=== PATIENT | female | born 1930 | race Caucasian/White ===

== ENCOUNTER 2016-08-21 13:51 | Emergency (ER) | payer MEDICARE, BC ==
[2016-08-21] MEDS ORDERED: LORazepam 2 MG/ML MDV IVPUSH ONE (13:57)
[2016-08-21] MEDS ORDERED: Ondansetron 4 MG/2 ML SDV IVPUSH ONE (13:57)
[2016-08-21] MEDS ORDERED: Sodium Chloride 0.9% 1,000 ML IV ONE (13:57)
[2016-08-21] MEDS ORDERED: Meclizine 25 MG Tab PO ONE (14:50)
[2016-08-21 16:31] VITALS: BP 139/50
--- NOTE | 2016-08-22 17:37 | ER ---
DATE SEEN: 08/21/2016 HISTORY OF PRESENT ILLNESS: The patient is an 85-year-old female, who presents with dizziness. She has difficulty seeing because of her glaucoma, has a glaucoma procedure scheduled in a few weeks. She says she has been getting progressively more anxious about the procedure, has not been eating or drinking well today, yesterday was able to drink okay. Denies any headache. She was recently prescribed medication to help her sleep and help with her anxiety which she just started taking them, but she is not sure if they have helped much. Dr. Schwartz prescribed those medications for her. She said dizziness is more pronounced when she goes from a sitting to standing position; when she is lying flat, she does not have any. She denies any shortness of breath or chest pain. MEDICATIONS: 1. Timolol. 2. Mirtazapine. 3. Citalopram. 4. Gemfibrozil. 5. Aspirin. 6. Norvasc. 7. Levothyroxine. 8. Atenolol. 9. Lisinopril. ALLERGIES: Penicillin, prednisone, Bactrim. PAST MEDICAL HISTORY: Glaucoma, cerebral vascular accident, hypertension. REVIEW OF SYSTEMS: NEUROLOGIC: Denies any focal weaknesses. PHYSICAL EXAMINATION: VITAL SIGNS: Temperature is 36.7, pulse is 58, blood pressure 151/72, respiratory rate 18, 98% on room air. GENERAL: She is no apparent acute distress. HEENT: Pupils equal, round, responsive to light. Extraocular muscles intact. NECK: Supple. LUNGS: Clear to auscultation. HEART: Regular rate and rhythm. ABDOMEN: Soft. NEUROLOGICAL: No focal deficits. No ataxia or dysmetria. When performing a Hallpike maneuver, it does not reproduce her symptoms. Orthostatic vitals were taken and she is orthostatic. LABORATORY DATA: CBC within normal limits. Metabolic panel is within normal limits. Creatinine is 0.7. Urinalysis within normal limits. EMERGENCY DEPARTMENT COURSE: She received a liter of normal saline, Zofran 4 mg p.o. She reports symptomatic improvement, able to walk more steady. Dizziness improved. She also received Ativan 1 mg IV. ASSESSMENT: Dizziness, likely due to orthostatic hypotension and anxiety. PLAN: Continue current medications. Increase fluid intake. Follow up with primary physician this week. /[id number] FATUMA
== END 2016-08-21 18:30 | disposition home or self-care (01) ==
LOC: FB.ED 13:51
DX: I10 Essential (primary) hypertension (principal); Z79.82 Long term (current) use of aspirin; Z88.0 Allergy status to penicillin; Z88.1 Allergy status to other antibiotic agents; Z88.5 Allergy status to narcotic agent; Z86.73 Personal history of transient ischemic attack (TIA), and cerebral infarction without residual deficits
CPT/HCPCS: 36415; 80048; 81001; 85025; 96361; 96374; 96375; 99284; A9270; J2060; J2405; J7040; 99283

== ENCOUNTER 2016-08-23 11:44 | Emergency (ER) | payer MEDICARE, BC ==
[2016-08-23 16:12] VITALS: BP 156/72
--- NOTE | 2016-08-24 11:20 | CR ---
INDICATION: Dizziness, severe left fast component nystagmus. CHEST: PA and lateral views of the chest, 08/23/2016, were compared with 2007 and revealed the heart to be enlarged, the aorta tortuous and calcified in the arch and descending portion. Dextroconvex scoliosis of the upper middle thoracic spine is noted. Somewhat flattened diaphragm leaves, minimally prominent AP diameter, and mild hyperaeration, all suggest COPD along with interdigitation of diaphragm leaves. A definite active infiltrate or effusion was not identified. IMPRESSION: 1. No acute process. 2. Probable progressive ASHD with cardiomegaly. 3. COPD. 4. Mild scoliosis. MTDD
--- NOTE | 2016-08-26 11:59 | ER ---
DATE SEEN: 08/23/2016 TIME SEEN: The patient was seen at 1205 hours. CHIEF COMPLAINT: This 85-year-old woman comes in with history of dizziness, nystagmus, anxiety, anorexia, depression, hypothyroidism, status post CVA glaucoma with need for left eye surgery on September 14 because the pressure is so high, restlessness, dyslipidemia, and no history of falls. HISTORY OF PRESENT ILLNESS: The patient was seen 2 days ago in the emergency room by Dr. Felix. Noted to have dizziness, anorexia, anxiety, and Hallpike maneuver was negative. Laboratory studies were negative. She was given Ativan IV for her anxiety. Daughter and the patient note that she had become just weird, "dysphoric" after she left the ER. She was flushed with IV fluids for orthostatic hypotension and now returns again because she has persistent dizziness not resolved, meclizine does not help, and anxiety is increased. Decreased food intake, but she is drinking fluids. She knows that the anorexia and nausea is probably related to her dizziness. She vomited the evening of 08/21/2016. She is very anxious about having her upcoming cataract surgery on September 14. Also anxious about her living situation. Lives alone in an apartment at [place]. Her daughter lives in [place] and another daughter lives approximately 200 miles from here. Apparently, she has less than an optimal relationship with her daughters, I am not sure what that is all about. See pertinent dictation below. I later learned that one of her daughters - she is not on speaking terms. They have more or less a standoff relationship because apparently when her grandson she never spoke to her daughter, was never supportive, and the daughter notes she has never been much of a mother to me in that regard. Also, when the patient's went to the intermediate, she never visited. The daughter presents a history that she was quite selfish and she was quite cordial to other people, but very much antagonistic to both daughters and not very much involved with them nor does she listen to the daughters' advice. According to one daughter, they were very concerned about her stability, her walking, and want her very much to go to [facility]. The patient has been very resistant to moving from her current place in [place] to [facility] in [place]. It is an assisted living environment where she would be more safe and the daughters feel she would have better care and better interaction with people she knows. No recent history of falls. SIGNIFICANT PAST MEDICAL HISTORY: Depression, CVA, hypothyroidism treated, hypertension, right eye glaucoma, left eye is seriously elevated. She has fear of losing more of her eyesight in the right good eye. Her left eye has very poor vision. Dyslipidemia, restless legs syndrome, and significant anxiety, and documented 07/03/15 nystagmus on the chart and also had nystagmus on the last visit, 08/21/2016, when seen by Dr. Felix. Medications have not been changed recently. She denies dehydration. She feels she is eating and drinking, but her p.o. intake and liquid intake is obviously decreased because she has had this persistent dizziness and that is getting worse. REVIEW OF SYSTEMS: CARDIORESPIRATORY: The patient denies chest pain, shortness of breath, cough, or irregular heartbeat. HEENT: Denies headaches, difficulty swallowing, or decreased hearing. She denies neck pain or falls. GASTROINTESTINAL: Denies abdominal discomfort, diarrhea, constipation, change in bowels, blood in her stool, black or tarry stool, reflux. : Denies any incontinence. MUSCULOSKELETAL: Denies joint pain, aching, or weakness, but she uses a cane periodically. NEUROLOGIC: Previous CVA. Denies seizures or falling to one side or weakness of one extremity. PHYSICAL EXAMINATION: VITAL SIGNS: Blood pressure 160/69, respirations 15, heart rate 71 and regular, and oxygen saturation 98% on room air. Orthostatic blood pressure supine 152/83 and heart rate 89, sitting 165/83 and heart rate 53, standing blood pressure 161/77 and heart rate 57. No evidence for orthostatic changes. In fact, it is surprising that with sitting and standing her heart rate would come down as opposed to increase. Perhaps the Tenormin has caused her heart rate to go down as opposed to having a sympathetic response to elevate. She is taking Tenormin 50 mg b.i.d. HEENT: The patient has very notable left fast component nystagmus, rapid beats. I did not look into the eyes - I did not check the retinas. EOMs, she has conjugate gaze in spite of the blindness in the left eye. She can sense light, but has very poor vision in the left eye. Hearing is good. TMs negative. NECK: Supple. No bruits in the neck. Swelling is appropriate. Uvula midline. Tongue is midline. LUNGS: Clear to auscultation without rales, rhonchi, or wheezes. HEART: S1, S2. No murmur. No irregular rate or rhythm. No S3, no S4. ABDOMEN: Soft. No guarding. No abdominal discomfort. NEUROLOGIC: Deep tendon reflexes, upper extremities hypoactive, absent knee jerks and ankle jerks. Muscle strength in dorsiflexion, plantar flexion of the foot is excellent. Muscle strength left and right upper extremity symmetrical and good. Hand staffing rn is good. She pushes and pulls well. Pronator drift negative. Cranial nerves 2 through 12 intact except for the vision. No asymmetry of facial folds. Gait is stable but somewhat unsure because her vision is poor. Romberg is negative. LABORATORY DATA: CPK is normal - no suggestion of myocardial infarction or rhabdomyolysis from sitting around or lying around too long. TSH is not abnormal. CMP and CBC are normal. EKG; sinus rhythm in the 50s. Chest x-ray, no infiltrate. She has trace cardiomegaly, the transcardiac versus transthoracic ratio is slightly over 50%, so it suggests very slight cardiomegaly. Her daughter notes that she had one chamber abnormality on an echo that had previously been discussed and "it was slightly enlarged and less functional than other chambers." This suggests perhaps there may be some left ventricular bulbous quality, but I think that is an overcall on the chest x-ray. PROCEDURE: I did perform a Hallpike maneuver. It seemed to be more accentuated on the left with the left lateral head slightly turned to the left compared to the right. With the fast component to the left, the Montrell maneuver was performed and did not make any difference in her dizziness. However, with the Montrell maneuver, intermittently the nystagmus would completely relent. It relented for about a minute, then returned to same. Also, when she would sit up, the nystagmus relented. When I tried to test the right side of her head, the left-sided fast nystagmus persisted. When I performed the lateral Montrell maneuver - had her lie down and roll her body with the head almost on the floor (at least 1.5 feet below the gurney surface) and had her sit up rapidly, the nystagmus relented for about a minute, and then came back at the same level it was before. The patient had Montrell maneuver performed in physical therapy by Glynn, the chief physical therapist, and he felt this was not a semicircular canal-mediated nystagmus. He plans to see her later this week on , in 2 days, and repeat more testing. He did not feel there was a horizontal canal, semi- circular canal abnormality. 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 Perhaps if Nicholas cannot get resolution of the vertigo with the sophisticated PT maneuvers she may have to go to vertigo clinic where computerized goggle measurement can confirm the presence or absence of semicircular canal abnormalities. ASSESSMENT: 1. Dizziness and nystagmus are associated. Does not appear to be a benign paroxysmal positional vertigo. 2. Etiology for dizziness is indeterminate. Surprisingly, this does relent when she sits up for a minute or when she would rotate to the side, left or right with her head over the gurney, and closer to the floor position. 3. The latter two findings suggest there is some indirect relationship to semicircular canals. Perhaps, further testing may elucidate this. However, I am not optimistic. The surprising decrease of her vertigo with sitting up, may relate this is a blood pressure issue. Perhaps the patient needs to have a higher blood pressure and the atenolol dose could be tried at a lower dose. This is a guess. The only way to know is to perform a trial of this and require more medical vigilance and closer followup. I did not change her medicines in that regard. OTHER DIAGNOSES: 1. Status post cerebrovascular accident. It is possibly the cerebrovascular accident may have affected her balance centers or the nystagmus and this is permanently present since the cerebrovascular accident. 2. Hypothyroidism, treated, stable. TSH is normal. 3. Glaucoma increasing pain in left eye, perhaps the glaucoma may have something to do with accentuated nystagmus, but she has had nystagmus since July 03, 2015 documented on the chart, so I think this is more a long-term neurological injury. Perhaps the cerebrovascular accident that she experienced years ago is the cause of this. 4. Dyslipidemia. 5. Restless legs syndrome. 6. The patient did not respond to meclizine. 7. She became dysphoric with 1 mg of Ativan. PLAN: 1. A trial of very low doses of clonazepam 0.25 mg or 0.5 mg b.i.d. She will need to have the staff to be vigilant about her gait. Should this cause her dizziness, she should discontinue this trial. 2. Her anxiety seems to be an overriding issue in her life. She has apparently burned the bridges between her daughters and they are less than motivated to work with her since she has been contrarian to them most of their life. The patient is to follow up with doctor in a week. 3. Also, the most important issue that was addressed today was the subsequent living place. She has realized that she needs to change places where she lives and needs to go to [facility] for security. Otherwise, I am afraid she would need to go directly to a intermediate for further care. She came to this conclusion, but that was not something that I pushed her to do, but have reinforced that. Her daughters will be working to establish this and to help her make this transition. /[id number] TETO/MENG ORTEGA
== END 2016-08-23 16:00 | disposition home or self-care (01) ==
LOC: FB.ED 11:44
DX: R42 Dizziness and giddiness (principal); E03.9 Hypothyroidism, unspecified
CPT/HCPCS: 36415; 71020; 80053; 82550; 84443; 84484; 85025; 93005; 99283; 99285

== ENCOUNTER 2016-09-11 12:50 | Observation (INO) | payer MEDICARE, BC ==
[2016-09-11] MEDS ORDERED: Ondansetron 4 MG Tab.DIS PO ONE (13:02)
[2016-09-11] MEDS ORDERED: Ketorolac 30 MG/ML SDV IM ONE (13:10)
--- NOTE | 2016-09-11 13:15 | EDM.PDOC ---
ED HPI GENERAL MEDICAL PROBLEM - General Chief Complaint: General Stated Complaint: LIGHT HEADED, WEAK AND ABD PAIN Time Seen by Provider: 09/11/16 13:00 Source of Information: Reports: Patient, Old Records History Limitations: Reports: No Limitations - History of Present Illness INITIAL COMMENTS - FREE TEXT/NARRATIVE: 85 yo female here with a 2 week hx of nausea that is worse today. Had been seen for these sx's here about 2 weeks ago and nothing was found. Says she vomited a couple times today. Is mostly blind. Arrives via EMS. Reports a mild MARHS. No diarrhea. Some mild diffuse abdominal pain. Denies vertigo. Has anorexia. Had some chills today. No dysuria or cough or SOB. No chest pain. Onset: Other (approx 2 weeks ago.) Duration: Week(s):, Getting Worse Location: Reports: Head, Abdomen Quality: Reports: Dull Severity: Moderate Improves with: Reports: None Worsens with: Reports: Eating Context: Reports: Other (unknown cause, recent negative work up. ) Associated Symptoms: Reports: Fever/Chills (no fever, only chills), Headaches ( mild today), Loss of Appetite, Malaise, Nausea/Vomiting, Syncope (not today, before last ER visit). 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 (see below) (none today) Middle Abdomen Pain Score (Numeric/FACES): 7 - Related Data Allergies Allergy/AdvReac Type Severity Reaction Status Date / Time Penicillins Allergy Hives Verified 09/11/16 13:00 prednisone Allergy Cannot Verified 09/11/16 13:00 Remember sulfamethoxazole Allergy Cannot Verified 09/11/16 13:00 [From Bactrim] Remember Tetanus Vaccines and Toxoid Allergy Swelling Verified 09/11/16 13:00 trimethoprim [From Bactrim] Allergy Cannot Verified 09/11/16 13:00 Remember steroids Allergy Swollen Uncoded 09/11/16 13:00 Eyes Home Meds: Home Meds Atenolol [Tenormin] 50 mg PO BID 07/03/15 [History] Bimatoprost [LUMIGAN 0.01% Ophth Soln] 1 drop EYEBOTH BEDTIME 07/03/15 [History] Levothyroxine 75 mg PO DAILY 07/03/15 [History] Lisinopril 40 mg PO DAILY 07/03/15 [History] Timolol Maleate [Timoptic 0.5% Ophth Soln] 1 drop EYEBOTH DAILY 07/03/15 [ History] amLODIPine [Norvasc] 2.5 mg PO DAILY 07/03/15 [History] Aspirin [Adult Low Dose Aspirin EC] 81 mg PO DAILY 08/21/16 [History] Gemfibrozil [Lopid] 600 mg PO DAILY 08/21/16 [History] ClonazePAM [KlonoPIN] 0.25 mg PO BID #20 tablet 08/23/16 [Rx] Lutein/Minerals/Vit A,C & E [Ocuvite] 1 tab PO DAILY 08/23/16 [History] Citalopram [Citalopram HBr] 10 mg PO DAILY 09/11/16 [History] Ondansetron [Ondansetron Odt] 4 mg PO Q8HR 09/11/16 [History] Past Medical History HEENT History: Reports: Glaucoma Cardiovascular History: Reports: Hypertension Other Cardiovascular History: "MY HEART SKIPS A BEAT" 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 History: Endocrine/Metabolic History: Reports: Other (See Below) Other Endocrine/Metabolic History: THYROID - Past Surgical History HEENT Surgical History: Reports: Tonsillectomy Female Surgical History: Reports: Hysterectomy Social & Family History - Tobacco Use Smoking Status *Q: Never Smoker Second Hand Smoke Exposure: No - Caffeine Use Caffeine Use: Reports: Soda - Recreational Drug Use Recreational Drug Use: No ED ROS GENERAL - Review of Systems Review Of Systems: See Below Constitutional: Reports: Malaise HEENT: Reports: No Symptoms Respiratory: Reports: No Symptoms Cardiovascular: Reports: No Symptoms GI/Abdominal: Reports: Abdominal Pain (mild diffuse), Anorexia, Decreased Appetite, Nausea, Vomiting. Denies: Constipation, Diarrhea, Distension, Hematemesis, Hematochezia, Melena : Reports: No Symptoms Musculoskeletal: Reports: No Symptoms Skin: Reports: No Symptoms Neurological: Reports: Dizziness (mild) Psychiatric: Reports: No Symptoms ED EXAM, GENERAL - Physical Exam Exam: See Below Exam Limited By: No Limitations General Appearance: Alert, WD/WN, No Apparent Distress Eye Exam: Bilateral Eye: EOMI, Normal Inspection, PERRL Ears: Normal External Exam, Normal Canal, Hearing Grossly Normal, Normal TMs Ear Exam: Bilateral Ear: Auricle Normal, Canal Normal, TM normal Nose: Normal Inspection, Normal Mucosa, No Blood Throat/Mouth: Normal Inspection, Normal Lips, Normal Teeth, Normal Oropharynx, Normal Voice, No Airway Compromise Head: Atraumatic, Normocephalic Neck: Normal Inspection, Supple, Non-Tender Respiratory/Chest: No Respiratory Distress, Lungs Clear, Normal Breath Sounds, No Accessory Muscle Use Cardiovascular: Regular Rate, Rhythm, No Edema GI/Abdominal: Normal Bowel Sounds, Soft, Non-Tender, No Distention Back Exam: Normal Inspection Extremities: Normal Inspection, Normal Range of Motion, Non-Tender, No Pedal Edema Neurological: Alert, Oriented, CN II-XII Intact, Normal Cognition, No Motor/ Sensory Deficits Psychiatric: Normal Affect, Normal Mood Skin Exam: Warm, Dry, Intact, Normal Color, No Rash Lymphatic: No Adenopathy EKG INTERPRETATION EKG Date: 09/11/16 Time: 13:10 Rhythm: NSR Rate (Beats/Min): 56 [place]: Normal P-Wave: Present QRS: Normal ST-T: Normal QT: Normal Comparison: No Change Course - Vital Signs Text/Narrative:: Alprazolam 0.25 mg po, Zofran ODT 4 mg SL, Toradol 15 mg IM, amlodipine 2.5 mg po, atenolol 50 mg po, lisinopril 40 mg po, NS 1000 ml IV, cephalexin 500 mg po , Maalox 30 ml po, Dulcolax supp 1 [place](declined), acetaminophen 1000 mg po Last Recorded V/S: Last Vital Signs Temp 37.2 C 09/11/16 13:02 Pulse 56 L 09/11/16 13:02 Resp 16 09/11/16 13:02 BP 160/59 H 09/11/16 14:25 Pulse Ox 100 09/11/16 13:02 - Orders/Labs/Meds Orders: Active Orders 24 hr Category Date Time Status CULTURE URINE [RM] Stat Lab 09/11/16 13:55 Received Sodium Chloride 0.9% [Normal Saline] 1,000 ml Med 09/11/16 14:15 Active IV ASDIRECTED Sodium Chloride 0.9% [Saline Flush] Med 09/11/16 13:24 Active 10 ml FLUSH ASDIRECTED PRN Saline Lock Insert [OM.PC] Routine Oth 09/11/16 13:24 Ordered EKG 12 Lead [EK] Routine Ther 09/11/16 13:07 Ordered Medication Orders Sodium Chloride (Normal Saline) 1,000 mls @ 1,000 mls/hr IV ASDIRECTED MICHELLE Last Admin: 09/11/16 14:30 Dose: 1,000 mls/hr Sodium Chloride (Saline Flush) 10 ml FLUSH ASDIRECTED PRN PRN Reason: Keep Vein Open Last Admin: 09/11/16 13:44 Dose: 10 ml Labs: Laboratory Tests 09/11/16 09/11/16 09/11/16 Range/Units 13:25 13:25 13:25 WBC 5.8 (4.5-12.0) X10-3/uL RBC 4.40 (3.23-5.20) x10(6)uL Hgb 14.1 (11.5-15.5) g/dL Hct 41.7 (30.0-51.3) % MCV 94.8 (80-96) fL MCH 32.1 (27.7-33.6) pg MCHC 33.9 (32.2-35.4) g/dL RDW 11.8 (11.5-15.5) % Plt Count 226 (125-369) X10(3)uL Sodium 127 L (135-145) mmol/L Potassium 5.0 (3.5-5.3) mmol/L Chloride 92 L D (100-110) mmol/L Carbon Dioxide 25 (23-29) mmol/L BUN 10 (8-23) mg/dL Creatinine 0.8 (0.6-1.3) mg/dL Est Cr Clr Drug Dosing TNP Estimated GFR (MDRD) > 60 (>60) BUN/Creatinine Ratio 12.5 (9-20) Glucose 122 H (80-116) mg/dL Calcium 9.5 (8.6-10.2) mg/dL Troponin I < 0.01 L (0.02-0.06) NG/ML Urine Color (YELLOW) Urine Appearance (CLEAR) Urine pH (5.0-6.5) Ur Specific [place] (1.010-1.025) Urine Protein (NEGATIVE) mg/dL Urine Glucose (UA) (NEGATIVE) mg/dL Urine Ketones (NEGATIVE) mg/dL Urine Occult Blood (NEGATIVE) Urine Nitrite (NEGATIVE) Urine Bilirubin (NEGATIVE) Urine Urobilinogen (NEGATIVE) mg/dL Ur Leukocyte Esterase (NEGATIVE) Urine WBC (0) Ur Squamous Epith Cells (NS,R,O) Urine Bacteria (NS) 09/11/16 Range/Units 13:55 WBC (4.5-12.0) X10-3/uL RBC (3.23-5.20) x10(6)uL Hgb (11.5-15.5) g/dL Hct (30.0-51.3) % MCV (80-96) fL MCH (27.7-33.6) pg MCHC (32.2-35.4) g/dL RDW (11.5-15.5) % Plt Count (125-369) X10(3)uL Sodium (135-145) mmol/L Potassium (3.5-5.3) mmol/L Chloride (100-110) mmol/L Carbon Dioxide (23-29) mmol/L BUN (8-23) mg/dL Creatinine (0.6-1.3) mg/dL Est Cr Clr Drug Dosing Estimated GFR (MDRD) (>60) BUN/Creatinine Ratio (9-20) Glucose (80-116) mg/dL Calcium (8.6-10.2) mg/dL Troponin I (0.02-0.06) NG/ML Urine Color Yellow (YELLOW) Urine Appearance Slightly cloudy (CLEAR) Urine pH 7.0 H (5.0-6.5) Ur Specific [place] 1.010 (1.010-1.025) Urine Protein Negative (NEGATIVE) mg/dL Urine Glucose (UA) Normal (NEGATIVE) mg/dL Urine Ketones Negative (NEGATIVE) mg/dL Urine Occult Blood Negative (NEGATIVE) Urine Nitrite Negative (NEGATIVE) Urine Bilirubin Negative (NEGATIVE) Urine Urobilinogen Normal (NEGATIVE) mg/dL Ur Leukocyte Esterase Moderate H (NEGATIVE) Urine WBC 20-30 H (0) Ur Squamous Epith Cells Few H (NS,R,O) Urine Bacteria Moderate H (NS) Meds: Medications Generic Name Dose Route Start Last Admin Trade Name Freq PRN Reason Stop Dose Admin Sodium Chloride 1,000 mls @ 1,000 mls/hr 09/11/16 14:15 09/11/16 14:30 Normal Saline IV 1,000 mls/hr ASDIRECTED MICHELLE Administration Sodium Chloride 10 ml 09/11/16 13:24 09/11/16 13:44 Saline Flush FLUSH 10 ml ASDIRECTED PRN Administration Keep Vein Open Discontinued Medications Generic Name Dose Route Start Last Admin Trade Name Freq PRN Reason Stop Dose Admin Acetaminophen 1,000 mg 09/11/16 16:33 09/11/16 16:39 Tylenol Extra Strength PO 09/11/16 16:34 1,000 mg ONETIME ONE Administration Al Hydroxide/Mg Hydroxide 30 ml 09/11/16 15:53 09/11/16 16:39 Mag-Al Susp PO 09/11/16 15:54 30 ml NOW STA Administration Alprazolam 0.25 mg 09/11/16 13:37 09/11/16 13:43 Xanax PO 09/11/16 13:38 0.25 mg NOW ONE Administration Amlodipine Besylate 2.5 mg 09/11/16 13:59 09/11/16 14:24 Norvasc PO 09/11/16 14:00 2.5 mg ONETIME ONE Administration Atenolol 50 mg 09/11/16 13:59 09/11/16 14:25 Tenormin PO 09/11/16 14:00 50 mg ONETIME ONE Administration Bisacodyl 10 mg 09/11/16 15:53 09/11/16 16:39 Dulcolax RECTAL 09/11/16 15:54 10 mg ONETIME ONE Administration Cephalexin 500 mg 09/11/16 14:27 09/11/16 14:47 Keflex PO 09/11/16 14:28 500 mg ONETIME ONE Administration Ketorolac Tromethamine 15 mg 09/11/16 13:10 09/11/16 13:14 Toradol IM 09/11/16 13:11 15 mg ONETIME ONE Administration Lisinopril 40 mg 09/11/16 13:59 09/11/16 14:25 Prinivil PO 09/11/16 14:00 40 mg NOW STA Administration Ondansetron HCl 4 mg 09/11/16 13:02 09/11/16 13:11 Zofran Odt PO 09/11/16 13:03 4 mg ONETIME ONE Administration Departure - Departure Time of Disposition: 17:15 Disposition: Refer to Observation Condition: Fair Clinical Impression: Hyponatremia, Dizziness, Nausea - Discharge Information Forms: ED Department Discharge - My Orders Last 24 Hours: My Active Orders 09/11/16 13:07 EKG 12 Lead [EK] Routine 09/11/16 13:24 Sodium Chloride 0.9% [Saline Flush] 10 ml FLUSH ASDIRECTED PRN Saline Lock Insert [OM.PC] Routine 09/11/16 13:55 CULTURE URINE [RM] Stat 09/11/16 14:15 Sodium Chloride 0.9% [Normal Saline] 1,000 ml IV ASDIRECTED - Assessment/Plan Last 24 Hours: My Active Orders 09/11/16 13:07 EKG 12 Lead [EK] Routine 09/11/16 13:24 Sodium Chloride 0.9% [Saline Flush] 10 ml FLUSH ASDIRECTED PRN Saline Lock Insert [OM.PC] Routine 09/11/16 13:55 CULTURE URINE [RM] Stat 09/11/16 14:15 Sodium Chloride 0.9% [Normal Saline] 1,000 ml IV ASDIRECTED
[2016-09-11] MEDS ORDERED: Sodium Chloride 0.9% 10 ML Syringe FLUSH PRN (13:24)
[2016-09-11] MEDS ORDERED: ALPRAZolam 0.25 MG Tab PO ONE (13:37)
[2016-09-11] MEDS ORDERED: Atenolol 50 MG Tab PO ONE (13:59)
[2016-09-11] MEDS ORDERED: amLODIPine 2.5 MG Tab PO ONE (13:59)
[2016-09-11] MEDS ORDERED: Sodium Chloride 0.9% 1,000 ML IV SCH ×2 (14:15→17:15)
[2016-09-11] MEDS ORDERED: Cephalexin 500 MG Cap PO ONE (14:27)
[2016-09-11] MEDS ORDERED: Aluminum Hydroxide/Magnesium Hydroxide Susp 30 ML Cup PO STA (15:53)
[2016-09-11] MEDS ORDERED: Bisacodyl 10 MG Supp RECTAL ONE (15:53)
[2016-09-11] MEDS ORDERED: Acetaminophen 500 MG Tab PO ONE (16:33)
[2016-09-11] MEDS ORDERED: Ondansetron 4 MG Tab.DIS *PTOM PO PRN (17:09)
[2016-09-11] MEDS ORDERED: Docusate Sodium 100 MG Cap PO PRN (17:09)
[2016-09-11] MEDS ORDERED: BIMATOPROST 0.01% EYEBOTH SCH (21:00)
[2016-09-11] MEDS: ATENOLOL 100 MG PO SCH (21:24)
[2016-09-11] MEDS: ClonazePAM 0.5 MG Tab PO SCH (22:18)
[2016-09-12] MEDS ORDERED: Acetaminophen 325 MG Tab PO PRN (04:20)
--- NOTE | 2016-09-12 08:10 | PCM.HP ---
H&P History of Present Illness - General Date of Service: 09/12/16 Admit Problem/Dx: Admission Diagnosis/Problem Admission Diagnosis/Problem Hyponatremia Source of Information: Patient, EMS Notes Reviewed, Old Records History Limitations: Reports: No Limitations - History of Present Illness Initial Comments - Free Text/Narative: 85-year-old female was admitted because of dizziness. The dizziness is gone for at least 2 months. The cause has been indeterminate. She has a history of CVA and is thought that could contribute, but she also has a history of anxiety and difficult to control. She lives at home alone, and has had problems with glaucoma as well. A plan is in place to admit her to [facility]. She denies any fever this morning noted that she have any nausea or vomiting she does have a headache that is mild to moderate. She has a history of hypertension dyslipidemia previously been well controlled. Middle Abdomen Pain Score (Numeric/FACES): 7 Headache Pain Score (Numeric/FACES): 4 - Related Data Allergies/Adverse Reactions: Allergies Allergy/AdvReac Type Severity Reaction Status Date / Time Penicillins Allergy Hives Verified 09/11/16 13:00 prednisone Allergy Cannot Verified 09/11/16 13:00 Remember sulfamethoxazole Allergy Cannot Verified 09/11/16 13:00 [From Bactrim] Remember Tetanus Vaccines and Toxoid Allergy Swelling Verified 09/11/16 13:00 trimethoprim [From Bactrim] Allergy Cannot Verified 09/11/16 13:00 Remember steroids Allergy Swollen Uncoded 09/11/16 13:00 Eyes Home Medications: Home Meds Atenolol [Tenormin] 50 mg PO BID 07/03/15 [History] Bimatoprost [LUMIGAN 0.01% Ophth Soln] 1 drop EYEBOTH BEDTIME 07/03/15 [History] Levothyroxine 75 mg PO DAILY 07/03/15 [History] Lisinopril 40 mg PO DAILY 07/03/15 [History] Timolol Maleate [Timoptic 0.5% Ophth Soln] 1 drop EYEBOTH DAILY 07/03/15 [ History] amLODIPine [Norvasc] 2.5 mg PO DAILY 07/03/15 [History] Aspirin [Adult Low Dose Aspirin EC] 81 mg PO DAILY 08/21/16 [History] Gemfibrozil [Lopid] 600 mg PO DAILY 08/21/16 [History] ClonazePAM [KlonoPIN] 0.25 mg PO BID #20 tablet 08/23/16 [Rx] Lutein/Minerals/Vit A,C & E [Ocuvite] 1 tab PO DAILY 08/23/16 [History] Citalopram [Citalopram HBr] 10 mg PO DAILY 09/11/16 [History] Ondansetron [Ondansetron Odt] 4 mg PO Q8HR 09/11/16 [History] Past Medical History HEENT History: Reports: Glaucoma Cardiovascular History: Reports: Hypertension Other Cardiovascular History: "MY HEART SKIPS A BEAT" Respiratory History: Reports: None Genitourinary History: Reports: None 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: Musculoskeletal History: Reports: None Neurological History: Reports: None Endocrine/Metabolic History: Reports: Hypothyroidism, Other (See Below) Other Endocrine/Metabolic History: THYROID Hematologic History: Reports: None Immunologic History: Reports: None Oncologic (Cancer) History: Reports: None Dermatologic History: Reports: None - Infectious Disease History Infectious Disease History: Reports: None - Past Surgical History Head Surgeries/Procedures: Reports: None HEENT Surgical History: Reports: Tonsillectomy Respiratory Surgical History: Reports: None GI Surgical History: Reports: Appendectomy, Cholecystectomy Female Surgical History: Reports: Hysterectomy Neurological Surgical History: Reports: None Musculoskeletal Surgical History: Reports: None Social & Family History - Family History Family Medical History: Noncontributory - Tobacco Use Smoking Status *Q: Never Smoker Second Hand Smoke Exposure: No - Caffeine Use Caffeine Use: Reports: Soda Other Caffeine Use: diet. - Recreational Drug Use Recreational Drug Use: No H&P Review of Systems - Review of Systems: Review Of Systems: ROS reveals no pertinent complaints other than HPI. Exam - Exam Exam: See Below - Vital Signs Vital Signs: Last Vital Signs Temp 96.9 F 09/12/16 04:25 Pulse 51 L 09/12/16 04:25 Resp 18 09/12/16 04:25 BP 149/69 H 09/12/16 04:25 Pulse Ox 98 09/12/16 04:25 Weight: 73.437 kg - Exam General: Alert, Oriented, 4 HEENT: PERRLA, Hearing Intact, Mucosa Moist & [place], Nares Patent, Normal Nasal Septum, Posterior Pharynx Clear, Conjunctiva Clear, EOMI, EACs Clear, TMs Clear Neck: Supple, Trachea Midline, 2 Lungs: Clear to Auscultation, Normal Respiratory Effort Cardiovascular: Regular Rate, Regular Rhythm Abdomen: Normal Bowel Sounds, Soft (Female) Exam: Deferred Rectal (Female) Exam: Deferred Back Exam: Normal Inspection, Full Range of Motion, NT Extremities: 3, Normal Inspection, 10 Skin: Warm, Dry, Intact Neurological: Cranial Nerves Intact, Reflexes Equal Bilateral Neuro Extensive - Mental Status: Alert, Oriented x3, Normal Mood/Affect, Normal Cognition Neuro Extensive - Motor, Sensory, Reflexes: CN II-XII Intact, Normal Gait, Normal Reflexes Psychiatric: Alert, Normal Affect, Normal Mood - Patient Data Lab Results Last 24 hrs: Laboratory Results - last 24 hr 09/12/16 Range/Units 06:30 Sodium 132 L (135-145) mmol/L Potassium 4.3 (3.5-5.3) mmol/L Chloride 99 L D (100-110) mmol/L Carbon Dioxide 27 (23-29) mmol/L BUN 12 (8-23) mg/dL Creatinine 0.8 (0.6-1.3) mg/dL Est Cr Clr Drug Dosing 41.76 mL/min Estimated GFR (MDRD) > 60 (>60) BUN/Creatinine Ratio 15.0 (9-20) Glucose 92 (80-116) mg/dL Calcium 8.4 L (8.6-10.2) mg/dL Result Diagrams: 09/11/16 13:25 09/12/16 06:30 *Q Meaningful Use (ADM) - VTE *Q VTE Criteria *Q: - Stroke *Q Stroke Criteria *Q: - AMI *Q AMI Criteria *Q: - Problem List (1) HTN (hypertension) SNOMED Code(s): 18842796 ICD Code: I10 - ESSENTIAL (PRIMARY) HYPERTENSION Status: Acute Current Visit: Yes Qualifiers: Hypertension type: essential hypertension Qualified Code(s): I10 - Essential (primary) hypertension (2) Dizziness SNOMED Code(s): 016937042, 220152915 ICD Code: R42 - DIZZINESS AND GIDDINESS Status: Acute Current Visit: Yes (3) Hyponatremia SNOMED Code(s): 52181446 ICD Code: E87.1 - HYPO-OSMOLALITY AND HYPONATREMIA Status: Acute Current Visit: Yes (4) Nausea SNOMED Code(s): 573933014 ICD Code: R11.0 - NAUSEA Status: Acute Current Visit: Yes (5) Anxiety SNOMED Code(s): 78857164 ICD Code: F41.9 - ANXIETY DISORDER, UNSPECIFIED Status: Acute Current Visit: Yes Problem List Initiated/Reviewed/Updated: Yes Orders Last 24hrs: Active Orders 24 hr Category Date Time Status Acetaminophen [Tylenol] Med 09/12/16 04:20 Active 650 mg PO Q4H PRN Aspirin [Halfprin] Med 09/12/16 09:00 Active 81 mg PO DAILY Atenolol [Tenormin] Med 09/11/16 21:00 Active 50 mg PO BID Bimatoprost [LUMIGAN 0.01% Ophth Soln] Med 09/11/16 21:00 Active 0 ml EYEBOTH BEDTIME Citalopram [Celexa] Med 09/12/16 09:00 Active 10 mg PO DAILY ClonazePAM [KlonoPIN] Med 09/11/16 21:00 Active 0.25 mg PO BID Gemfibrozil [Lopid] Med 09/12/16 09:00 Active 600 mg PO DAILY Levothyroxine Med 09/12/16 09:00 Active 75,000 mcg PO DAILY Lisinopril [Prinivil] Med 09/12/16 09:00 Active 40 mg PO DAILY Sodium Chloride 0.9% [Normal Saline] 1,000 ml Med 09/11/16 17:15 Active IV ASDIRECTED Timolol Maleate [Timoptic 0.5% Ophth Soln] Med 09/12/16 09:00 Active 0 ml EYEBOTH DAILY amLODIPine [Norvasc] Med 09/12/16 09:00 Active 2.5 mg PO DAILY Medication Orders Acetaminophen (Tylenol) 650 mg PO Q4H PRN PRN Reason: Headache Last Admin: 09/12/16 04:36 Dose: 650 mg Amlodipine Besylate (Norvasc) 2.5 mg PO DAILY MICHELLE Aspirin (Halfprin) 81 mg PO DAILY MICHELLE Atenolol (Tenormin) 50 mg PO BID MICHELLE Last Admin: 09/11/16 21:24 Dose: 50 mg Bimatoprost (Lumigan 0.01% Ophth Soln) 0 ml EYEBOTH BEDTIME MICHELLE Last Admin: 09/11/16 21:25 Dose: 1 drop Citalopram Hydrobromide (Celexa) 10 mg PO DAILY [facility] Clonazepam (Klonopin) 0.25 mg PO BID MICHELLE Last Admin: 09/11/16 22:18 Dose: 0.25 mg Docusate Sodium (Colace) 100 mg PO BID PRN PRN Reason: Constipation Gemfibrozil (Lopid) 600 mg PO DAILY [facility] Sodium Chloride (Normal Saline) 1,000 mls @ 1,000 mls/hr IV ASDIRECTED MICHELLE Last Infusion: 09/11/16 17:37 Dose: 75 mls/hr Admin: 09/11/16 14:30 Dose: 1,000 mls/hr Sodium Chloride (Normal Saline) 1,000 mls @ 75 mls/hr IV ASDIRECTED [facility] Last Admin: 09/12/16 06:29 Dose: 75 mls/hr Levothyroxine Sodium (Levothyroxine) 75,000 mcg PO DAILY [facility] Lisinopril (Prinivil) 40 mg PO DAILY [facility] Ondansetron HCl (Zofran Odt) 4 mg PO Q6H PRN PRN Reason: nausea, able to take PO Sodium Chloride (Saline Flush) 10 ml FLUSH ASDIRECTED PRN PRN Reason: Keep Vein Open Last Admin: 09/11/16 13:44 Dose: 10 ml Timolol Maleate (Timoptic 0.5% Oph Soln) 0 ml EYEBOTH DAILY [facility] Assessment/Plan Comment:: Her sodium has improved this morning up to 132. She reports that as nausea and headache better. She also states that dizziness has improved. I will discharge her home today but I would suggest beginning Celexa 10 day to help anxiety. I also did recommend make Compazine 10 mg 3 times a day when necessary for nausea and physical therapy to see if this improves the symptoms.
[2016-09-12] MEDS ORDERED: Ketorolac 30 MG/ML SDV IVPUSH PRN (08:12)
[2016-09-12] MEDS ORDERED: Aspirin 81 MG Tab.EC *PTOM PO SCH (09:00)
[2016-09-12] MEDS ORDERED: Levothyroxine 75 MCG Tab PO SCH ×2 (09:00)
[2016-09-12] MEDS ORDERED: amLODIPine 2.5 MG Tab *PTOM PO SCH (09:00)
[2016-09-12] MEDS ORDERED: Lisinopril 40 MG Tab *PTOM PO SCH (09:00)
[2016-09-12] MEDS ORDERED: Citalopram 10 MG Tab *PTOM PO SCH (09:00)
[2016-09-12] MEDS ORDERED: GEMFIBROZIL 600 MG PO SCH (09:00)
[2016-09-12] MEDS: ATENOLOL 100 MG PO SCH (10:20)
[2016-09-12] MEDS: ClonazePAM 0.5 MG Tab PO SCH (10:21)
[2016-09-12 12:26] VITALS: BP 147/70
== END 2016-09-12 13:10 | disposition home or self-care (01) ==
LOC: FB.ED 12:50 → FB.MS 17:09
PROVIDERS: ADMIT Emergency Medicine; ATTEND Family Medicine
DX: I10 Essential (primary) hypertension (principal); R42 Dizziness and giddiness; E87.1 Hypo-osmolality and hyponatremia; R11.0 Nausea; F41.9 Anxiety disorder, unspecified; E03.9 Hypothyroidism, unspecified; Z79.82 Long term (current) use of aspirin; Z79.899 Other long term (current) drug therapy; Z88.0 Allergy status to penicillin; Z88.1 Allergy status to other antibiotic agents; Z88.2 Allergy status to sulfonamides; Z88.8 Allergy status to other drugs, medicaments and biological substances; Z90.49 Acquired absence of other specified parts of digestive tract; Z90.710 Acquired absence of both cervix and uterus; Z98.890 Other specified postprocedural states
CPT/HCPCS: 36415; 80048; 81001; 84484; 85027; 87086; 87088; 87186; 93005; 96360; 96361; 99285; A9270; J1885; J7040; J7050; 96374; 99219; 99222; 99284; G0378

== ENCOUNTER 2018-06-12 09:24 | Emergency (ER) | payer MEDICARE, BC ==
[2018-06-12] MEDS ORDERED: Lisinopril 10 MG Tab PO ONE (09:52)
[2018-06-12] MEDS ORDERED: Metoprolol Tartrate 50 MG Tab PO ONE (09:53)
--- NOTE | 2018-06-12 10:04 | EDM.PDOC ---
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 reported tingling of LUE, now no c/o tingle or pain does have inc'd BP 197/87 most recently, however not given her AM pills, will give them here does have mild confusion that pt says is new, knew day of week and month but could not think of year no f/c/d, no n/v has 2 daughters, one in [facility], one in [facility] PMH: includes CVA, 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, glaucoma, mac degeneration, htn, dizzy, anxiety, hyponatremia, enlarged heart pt with Enterococcus faecalis UTI 09/26 when last seen in ED, sens all except moxiflox and TET last head CT 2y ago, will repeat altho suspect infectious etiology for paresthesias and mild confusion uses a walker, not fallen in past 6m - Related Data Allergies Allergy/AdvReac Type Severity Reaction Status Date / Time acetazolamide Allergy Other Verified 06/12/18 10:01 [From Diamox Sequels] atorvastatin [From Lipitor] Allergy Other Verified 06/12/18 10:01 dorzolamide Allergy Other Verified 06/12/18 10:01 Influenza Virus Vaccines Allergy Other Verified 06/12/18 10:01 Penicillins Allergy Hives Verified 09/11/16 13:00 prednisone Allergy Cannot Verified 09/11/16 13:00 Remember sulfamethoxazole Allergy Cannot Verified 09/11/16 13:00 [From Bactrim] Remember Tetanus Vaccines and Toxoid Allergy Swelling Verified 09/11/16 13:00 trimethoprim [From Bactrim] Allergy Cannot Verified 09/11/16 13:00 Remember steroids Allergy Swollen Uncoded 09/11/16 13:00 Eyes Home Meds: Home Meds Bimatoprost [LUMIGAN 0.01% Ophth Soln] 1 drop EYEBOTH BEDTIME 07/03/15 [History] Levothyroxine 75 mcg PO DAILY 07/03/15 [History] Lisinopril 40 mg PO DAILY 07/03/15 [History] Timolol Maleate [Timoptic 0.5% Ophth Soln] 1 drop EYELF BID 07/03/15 [History] Aspirin [Adult Low Dose Aspirin EC] 81 mg PO DAILY 08/21/16 [History] ClonazePAM [KlonoPIN] 0.25 mg PO BID #20 tablet 08/23/16 [Rx] Lutein/Minerals/Vit A,C & E [Ocuvite] 1 tab PO DAILY 08/23/16 [History] Citalopram [Citalopram HBr] 10 mg PO DAILY 09/11/16 [History] Cranberry Extract [Cranberry] 300 mg PO DAILY 06/12/18 [History] Furosemide [Lasix] 20 mg PO DAILY 06/12/18 [History] Loratadine 10 mg PO DAILY 06/12/18 [History] Metoprolol Tartrate 50 mg PO DAILY 06/12/18 [History] Rumsey-3/DHA/Epa/Fish Oil [Rumsey 3 500 Softgel] 1,000 mg PO DAILY 06/12/18 [ History] Past Medical History HEENT History: Reports: Glaucoma Cardiovascular History: Reports: Hypertension Other Cardiovascular History: "MY HEART SKIPS A BEAT" Respiratory History: Reports: None Genitourinary History: Reports: None [employer]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: Musculoskeletal History: Reports: None Neurological History: Reports: None Endocrine/Metabolic History: Reports: Hypothyroidism, Other (See Below) Other Endocrine/Metabolic History: THYROID Hematologic History: Reports: None Immunologic History: Reports: None Oncologic (Cancer) History: Reports: None Dermatologic History: Reports: None - Infectious Disease History Infectious Disease History: Reports: None - Past Surgical History Head Surgeries/Procedures: Reports: None HEENT Surgical History: Reports: Tonsillectomy Respiratory Surgical History: Reports: None GI Surgical History: Reports: Appendectomy, Cholecystectomy Female Surgical History: Reports: Hysterectomy Neurological Surgical History: Reports: None Musculoskeletal Surgical History: Reports: None Social & Family History - Family History Family Medical History: Noncontributory - Caffeine Use Caffeine Use: Reports: Soda Other Caffeine Use: diet. ED ROS GENERAL - Review of Systems Review Of Systems: See Below Constitutional: Reports: No Symptoms HEENT: Reports: No Symptoms Respiratory: Reports: No Symptoms Cardiovascular: Reports: No Symptoms Endocrine: Reports: No Symptoms GI/Abdominal: Reports: No Symptoms : Reports: No Symptoms Musculoskeletal: Reports: No Symptoms Skin: Reports: No Symptoms Neurological: Reports: Confusion, Paresthesia Psychiatric: Reports: No Symptoms Hematologic/Lymphatic: Reports: No Symptoms Immunologic: Reports: No Symptoms ED EXAM, GENERAL - Physical Exam Exam: See Below General Appearance: Alert, WD/WN, No Apparent Distress, Other (alert, pleasant, follows commands, poor memory, talk complete sentence, NAD, nontoxic) Eye Exam: Bilateral Eye: Other (dense opacity L cornea, R pupil 3 mm, reactive light, cannot count fingers) Ears: Normal External Exam, Normal Canal, Hearing Grossly Normal Nose: Normal Inspection, Normal Mucosa, No Blood Throat/Mouth: Normal Inspection, Normal Lips, Normal Voice, No Airway Compromise Head: Atraumatic, Normocephalic Neck: Normal Inspection, Supple, Non-Tender, Full Range of Motion. No: Lymphadenopathy (R), Lymphadenopathy (L) Respiratory/Chest: No Respiratory Distress, Lungs Clear, Normal Breath Sounds, No Accessory Muscle Use, Chest Non-Tender Cardiovascular: Regular Rate, Rhythm, Other (2/6 STEVE at LSB, 2+ edema to knees b /l, trace above knees, symmetric, shiny pretib skin and hairless c/w VSD) GI/Abdominal: Normal Bowel Sounds, Soft, Non-Tender, No Distention, Other ( prominent, rounded). No: Guarding, Rigid, Rebound Back Exam: Normal Inspection, Full Range of Motion. 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, ankle flex/ext 5/5) Psychiatric: Normal Affect, Normal Mood Skin Exam: Warm, Dry, Intact, Normal Color, No Rash Lymphatic: No Adenopathy Course - Vital Signs Last Recorded V/S: Last Vital Signs Temp 36.8 C 06/12/18 09:25 Pulse 70 06/12/18 10:08 Resp 18 06/12/18 09:25 BP 199/101 H 06/12/18 10:08 Pulse Ox 97 06/12/18 09:25 - Orders/Labs/Meds Orders: Active Orders 24 hr Category Date Time Status EKG Documentation Completion [RC] ASDIRECTED Care 06/12/18 09:56 Active Head wo Cont [CT] Stat Exams 06/12/18 09:54 Taken EKG 12 Lead [EK] Routine Ther 06/12/18 09:55 Ordered Labs: Laboratory Tests 06/12/18 06/12/18 06/12/18 Range/Units 10:15 10:15 10:15 WBC 5.2 (4.5-12.0) X10-3/uL RBC 4.83 (3.23-5.20) x10(6)uL Hgb 15.4 (11.5-15.5) g/dL Hct 46.2 (30.0-51.3) % MCV 95.6 (80-96) fL MCH 31.9 (27.7-33.6) pg MCHC 33.4 (32.2-35.4) g/dL RDW 12.7 (11.5-15.5) % Plt Count 167 (125-369) X10(3)uL MPV 7.0 L (7.4-10.4) fL Add Manual Diff Yes Neutrophils % (Manual) 77 (46-82) % Lymphocytes % (Manual) 17 (13-37) % Monocytes % (Manual) 5 (4-12) % Eosinophils % (Manual) 1 (0-5) % Sodium 141 (135-145) mmol/L Potassium 4.6 (3.5-5.3) mmol/L Chloride 103 (100-110) mmol/L Carbon Dioxide 33 H (21-32) mmol/L BUN 11 (7-18) mg/dL Creatinine 0.8 (0.55-1.02) mg/dL Est Cr Clr Drug Dosing TNP Estimated GFR (MDRD) > 60 (>60) BUN/Creatinine Ratio 13.8 (9-20) Glucose 126 H (80-116) mg/dL Calcium 8.8 (8.6-10.2) mg/dL Total Bilirubin 0.8 (0.1-1.3) mg/dL AST 20 (5-25) IU/L ALT 16 (12-36) U/L Alkaline Phosphatase 64 (56-112) IU/L Troponin I < 0.017 L (<0.017-0.056) ng/mL C-Reactive Protein 0.4 L (0.5-0.9) mg/dL NT-Pro-B Natriuret Pep 2321 H* (<=450) pg/mL Total Protein 7.1 (6.0-8.0) g/dL Albumin 3.8 (3.2-4.6) g/dL Globulin 3.3 g/dL Albumin/Globulin Ratio 1.2 Urine Color (YELLOW) Urine Appearance (CLEAR) Urine pH (5.0-6.5) Ur Specific [place] (1.010-1.025) Urine Protein (NEGATIVE) mg/dL Urine Glucose (UA) (NORMAL) mg/dL Urine Ketones (NEGATIVE) mg/dL Urine Occult Blood (NEGATIVE) Urine Nitrite (NEGATIVE) Urine Bilirubin (NEGATIVE) Urine Urobilinogen (NEGATIVE) mg/dL Ur Leukocyte Esterase (NEGATIVE) Urine WBC (0-5) Ur Squamous Epith Cells (NS,R,O) Urine Bacteria (NS) 06/12/18 Range/Units 10:45 WBC (4.5-12.0) X10-3/uL RBC (3.23-5.20) x10(6)uL Hgb (11.5-15.5) g/dL Hct (30.0-51.3) % MCV (80-96) fL MCH (27.7-33.6) pg MCHC (32.2-35.4) g/dL RDW (11.5-15.5) % Plt Count (125-369) X10(3)uL MPV (7.4-10.4) fL Add Manual Diff Neutrophils % (Manual) (46-82) % Lymphocytes % (Manual) (13-37) % Monocytes % (Manual) (4-12) % Eosinophils % (Manual) (0-5) % Sodium (135-145) mmol/L Potassium (3.5-5.3) mmol/L Chloride (100-110) mmol/L Carbon Dioxide (21-32) mmol/L BUN (7-18) mg/dL Creatinine (0.55-1.02) mg/dL Est Cr Clr Drug Dosing Estimated GFR (MDRD) (>60) BUN/Creatinine Ratio (9-20) Glucose (80-116) mg/dL Calcium (8.6-10.2) mg/dL Total Bilirubin (0.1-1.3) mg/dL AST (5-25) IU/L ALT (12-36) U/L Alkaline Phosphatase (56-112) IU/L Troponin I (<0.017-0.056) ng/mL C-Reactive Protein (0.5-0.9) mg/dL NT-Pro-B Natriuret Pep (<=450) pg/mL Total Protein (6.0-8.0) g/dL Albumin (3.2-4.6) g/dL Globulin g/dL Albumin/Globulin Ratio Urine Color Yellow (YELLOW) Urine Appearance Clear (CLEAR) Urine pH 7.0 H (5.0-6.5) Ur Specific [place] 1.005 L (1.010-1.025) Urine Protein Negative (NEGATIVE) mg/dL Urine Glucose (UA) Normal (NORMAL) mg/dL Urine Ketones Negative (NEGATIVE) mg/dL Urine Occult Blood Negative (NEGATIVE) Urine Nitrite Negative (NEGATIVE) Urine Bilirubin Negative (NEGATIVE) Urine Urobilinogen Normal (NEGATIVE) mg/dL Ur Leukocyte Esterase Negative (NEGATIVE) Urine WBC 0-5 (0-5) Ur Squamous Epith Cells Few H (NS,R,O) Urine Bacteria Few H (NS) Meds: Medications Discontinued Medications Generic Name Dose Route Start Last Admin Trade Name Freq PRN Reason Stop Dose Admin Lisinopril 40 mg 06/12/18 09:52 06/12/18 10:07 Prinivil PO 06/12/18 09:53 40 mg ONETIME ONE Administration Metoprolol Tartrate 50 mg 06/12/18 09:53 06/12/18 10:08 Lopressor PO 06/12/18 09:54 50 mg ONETIME ONE Administration - Re-Assessments/Exams Free Text/Narrative Re-Assessment/Exam: 06/12/18 12:[address] without is neg for old or new CVA as per Dr Barnett, slight increase in microvascular changes c/w previous CxR 2v with inc'd cardiomegaly without evidence of failure u/a neg for infection trop, CRP neg Na WNL, inc'd BNP, however no comparison, HF does appear reasonably well compensated EKG with afiab with rate control at 67, EKG 09/26 with SR at 56, call to PCP Dr Schwartz showed afib present [address]y ago [address] Schwartz recommended no change in meds with f/u with him or Nicholas Dejesus next week [facility], was inc'd on arrival but had not taken AM meds, which were given here, last BP 183/79, will get a 2nd dose of metoprolol at supper, meds can be adjusted next week by PCP no evidence of CVA, cause of transient tingling in LUE is multifactorial with no acute process identiefied will continue on ASA 81 mg daily Departure - Departure Time of Disposition: 12:12 Disposition: Home, Self-Care 01 Condition: Good Clinical Impression: Paresthesia of left arm, Elevated blood pressure reading, Peripheral edema, Elevated brain natriuretic peptide (BNP) level - Discharge Information *PRESCRIPTION DRUG MONITORING PROGRAM REVIEWED*: Not Applicable *COPY OF PRESCRIPTION DRUG MONITORING REPORT IN PATIENT SUZETTE: Not Applicable Additional Instructions: Continue current meds. Check and record BP 2 times daily for next week and take in report to PCP. See Dr Schwartz or Nicholas Dejesus in one week. - My Orders Last 24 Hours: My Active Orders 06/12/18 09:54 Head wo Cont [CT] Stat 06/12/18 09:55 EKG 12 Lead [EK] Routine 06/12/18 09:56 EKG Documentation Completion [RC] ASDIRECTED - Assessment/Plan Last 24 Hours: My Active Orders 06/12/18 09:54 Head wo Cont [CT] Stat 06/12/18 09:55 EKG 12 Lead [EK] Routine 06/12/18 09:56 EKG Documentation Completion [RC] ASDIRECTED
--- NOTE | 2018-06-12 11:29 | CR ---
INDICATION: New confusion, question pneumonia. CHEST: PA and lateral views of the chest were obtained 06/12/18 and compared with 08/23/16 and revealed mildly flattened diaphragm leaves with a mild degree of hyperaeration, raising question of a mild degree of COPD. A nodular density in the upper lateral lung field on the right is unchanged and likely post granulomatous. A definite consolidating pneumonia or effusion was not identified. The aorta is tortuous with calcification in the arch and descending portion. The heart is enlarged. There are some mild degenerative changes and minimal scoliosis in the spine. IMPRESSION: 1. No definite acute process, it is difficult to entirely exclude minimal patchy bronchopneumonia at the medial lung bases with somewhat heavy markings again noted in those areas. 2. Progressive ASHD with probable significant increase in heart size. 3. Post granulomatous change. 4. Possible COPD - correlate clinically. MTDD
--- NOTE | 2018-06-12 11:39 | CT ---
INDICATION: New confusion. CT HEAD WITHOUT CONTRAST: Spiral examination of the brain was obtained with sagittal and coronal reconstructions. Initial axial images were obtained and findings were compared with 07/03/15. Total exam DLP = 1,219.22 mGy-cm. There is now noted postsurgical change at both globes with the orbits otherwise unremarkable. Visualized paranasal sinuses and mastoid air cells appear to be well aerated. No cranial abnormality was seen. No shift of midline structures was seen. Ventricles are slightly more prominent than on the previous examination, suggesting a mild degree of progressive central atrophy. Cortical sulci are also slightly more prominent in appearance, suggesting mildly progressive cortical atrophy. White matter changes compatible with a mild degree of microvascular disease also appears slightly progressive. Calcifications are noted in the internal carotid and right vertebral arteries. No bleeding site or hematoma was seen - no definite acute intracranial abnormality was identified. IMPRESSION: 1. No acute intracranial abnormality. 2. Progressive mild microvascular disease type changes in the white matter with progressive generalized atrophy also to a mild degree. 3. Cerebrovascular disease with arterial calcifications. 4. Postsurgical globes now bilateral - new on the left. Report was called to Dr. Moya at 1055 hours on 06/12/18. MICHELLED
[2018-06-12 13:30] VITALS: BP 172/88
== END 2018-06-12 13:20 | disposition home or self-care (01) ==
LOC: FB.ED 09:24
DX: R20.2 Paresthesia of skin (principal); R60.0 Localized edema; R79.89 Other specified abnormal findings of blood chemistry; I10 Essential (primary) hypertension; E03.9 Hypothyroidism, unspecified; Z79.899 Other long term (current) drug therapy; Z88.8 Allergy status to other drugs, medicaments and biological substances
CPT/HCPCS: 36415; 70450; 71046; 80053; 81001; 83880; 84484; 85025; 86140; 93005; 99284; A9270; 93010; 99283